=== PATIENT | male | born 1980 | race Caucasian/White ===

== ENCOUNTER 2017-09-06 16:58 | Emergency (ER) | payer OTHER ==
[~2017-09-06] VITALS: Ht 172.7 cm; Wt 102.5 kg
[2017-09-06 17:08] VITALS: BP 150/88; Ht 172.7 cm; Wt 102.5 kg
== END 2017-09-06 17:46 | disposition home or self-care (01) ==
LOC: ED 16:58
DX: H00.014 Hordeolum externum left upper eyelid (principal)